=== PATIENT | male | born 1975 | race Caucasian/White ===

== ENCOUNTER 2023-07-18 21:05 | Emergency (ER) | payer OTHER ==
[~2023-07-18] VITALS: Ht 177.8 cm; Wt 75.7 kg
[~2023-07-18 21:05] MED LIST: 'TENORMIN50 MG PO; INDOCIN50 MG PO; NKHM PO; TOBRADEX 0.1%-0.5 ML OPH
[2023-07-18 21:40] LABS: BASO % 0.2 % (0.0-1.0); EOS % 0.2 % (1.0-4.0); HEMATOCRIT 45.7 % (42.0-52.0); LYMPH # 1.4 10*3/uL (1.3-4.4); LYMPH % 10.8 % (27.0-41.0); MEAN CELL VOLUME 86.9 fl (80.0-94.0); MEAN CORPUSCULAR HGB 29.5 pg (27.0-31.0); MEAN CORPUSCULAR HGB CONC 33.9 g/dl (33.0-37.0); MEAN PLATELET VOLUME 9.4 fl (9.6-12.3); MONO % 7.4 % (3.0-9.0); NEUT # 10.7 10*3/uL (2.3-7.9); NEUT % 80.6 % (47.0-73.0); PLATELET COUNT AUTOMATED 409 10*3/uL (130-400); RED BLOOD COUNT 5.26 10*6/uL (4.50-5.90); RED CELL DISTRI WIDTH 11.6 % (0-14.5); WHITE BLOOD COUNT 13.3 10*3/uL (4.8-10.8)
[2023-07-18 22:00] LABS: ALKALINE PHOSPHATASE 91 U/L (46-116); BUN 12 mg/dl (9-23); CHLORIDE 101 mmol/L (98-107); POTASSIUM 4.2 mmol/L (3.4-5.1); SGPT/ALT 86 U/L (10-49); TOTAL PROTEIN 8.4 gm/dL (6.0-8.0)
[2023-07-18 22:34] LABS: BILIRUBIN Negative (Negative); BLOOD Negative (Negative); CLARITY Clear (Clear); COLOR Yellow (Yellow); GLUCOSE Negative (Negative); KETONE Negative (Negative); LEUKO ESTERASE Negative (Negative); NITRITE Negative (Negative); PH 5.5 (4.5-8.0); SPECIFIC GRAVITY 1.015 (1.001-1.030)
[2023-07-18 22:44] LABS: EPITHELIAL CELLS 0-2; RBC 0-2 rbc/hpf (0-2); WBC 0-2 wbc/hpf (0-5)
[2023-07-19] MEDS ORDERED: LEVOFLOXACIN750 M2 PO (00:13)
[2023-07-19] MEDS ORDERED: METHOCARBAMOL500 M1 PO (00:13)
== END 2023-07-19 00:16 | disposition home or self-care (01) ==
LOC: ED 21:05
PROVIDERS: Nurse Practitioner Family
DX: J18.1 Lobar pneumonia, unspecified organism (principal); Z20.822 Contact with and (suspected) exposure to COVID-19; R79.89 Other specified abnormal findings of blood chemistry; D72.89 Other specified disorders of white blood cells; J90 Pleural effusion, not elsewhere classified; Z79.899 Other long term (current) drug therapy; Z98.890 Other specified postprocedural states

== ENCOUNTER 2023-09-01 15:58 | Emergency (ER) | payer OTHER ==
[~2023-09-01] VITALS: Ht 185.4 cm; Wt 90.7 kg
[~2023-09-01 15:58] MED LIST changes: +LEVOFLOXACIN750 M2 PO; +METHOCARBAMOL500 M1 PO
[2023-09-01 16:37] LABS: BASO # 0.1 10*3/uL (0.0-0.1); BASO % 0.4 % (0.0-1.0); EOS # 0.2 10*3/uL (0.0-0.4); EOS % 1.3 % (1.0-4.0); HEMATOCRIT 34.4 % (42.0-52.0); LYMPH # 2.1 10*3/uL (1.3-4.4); LYMPH % 17.6 % (27.0-41.0); MEAN CELL VOLUME 84.5 fl (80.0-94.0); MEAN CORPUSCULAR HGB 26.8 pg (27.0-31.0); MEAN CORPUSCULAR HGB CONC 31.7 g/dl (33.0-37.0); MONO # 0.7 10*3/uL (0.1-1.0); MONO % 6.2 % (3.0-9.0); NEUT # 8.8 10*3/uL (2.3-7.9); NEUT % 74.1 % (47.0-73.0); PLATELET COUNT AUTOMATED 452 10*3/uL (130-400); RED BLOOD COUNT 4.07 10*6/uL (4.50-5.90); RED CELL DISTRI WIDTH 13.2 % (0-14.5); WHITE BLOOD COUNT 11.9 10*3/uL (4.8-10.8)
[2023-09-01 17:00] LABS: ALKALINE PHOSPHATASE 82 U/L (46-116); CHLORIDE 101 mmol/L (98-107); POTASSIUM 3.4 mmol/L (3.4-5.1); SGPT/ALT 18 U/L (10-49); TOTAL PROTEIN 8.2 gm/dL (6.0-8.0)
[2023-09-01 17:01] LABS: BUN < 5 mg/dl (9-23)
== END 2023-09-01 20:29 | disposition short-term general hospital (02) ==
LOC: ED 15:58
PROVIDERS: Nurse Practitioner Family
DX: J85.2 Abscess of lung without pneumonia (principal); I48.91 Unspecified atrial fibrillation; Z98.890 Other specified postprocedural states